=== PATIENT | male | born 1970 | race Two or more races ===

== ENCOUNTER 2020-11-21 07:54 | Day surgery (SDC) | payer OTHER | END 2020-11-21 15:00 | disposition home or self-care (01) | LOC: CIR.AMB 07:54 | PROVIDERS: ATTEND Surgery Surgery of the Hand | DX: M67.842 Other specified disorders of synovium, left hand (principal); Z20.822 Contact with and (suspected) exposure to COVID-19 ==

== ENCOUNTER 2022-02-18 06:27 | Day surgery (SDC) | payer OTHER ==
[~2022-02-18] VITALS: Ht 170.2 cm; Wt 89.4 kg
[2022-02-18] MEDS ORDERED: ULTRAM50 MG PO (12:52)
== END 2022-02-18 16:20 | disposition home or self-care (01) ==
LOC: CIR.AMB 06:27
PROVIDERS: ATTEND Surgery
DX: N48.6 Induration penis plastica (principal); Z86.16 Personal history of COVID-19; Z20.822 Contact with and (suspected) exposure to COVID-19